=== PATIENT | male | born 1990 | race Two or more races ===

== ENCOUNTER 2021-06-22 11:42 | Emergency (ER) | payer SELFPAY ==
[2021-06-22 11:44] VITALS: BP 150/100; PULSE 69; RESP 18; TEMP 37; O2SAT 100; BMI 31.7
--- NOTE | 2021-06-22 12:21 | [facility].EDGENADL ---
ED Disposition Clinical Impression: Foreign body of hand, right Qualifiers: Encounter type: initial encounter Qualified Code(s): S60.551A - Superficial foreign body of right hand, initial encounter Disposition: Home, Self-Care Condition on Discharge: Good Instructions: DI for Laceration Repair Prescriptions: Amoxicillin/Potassium Clav [Amox-Clav 875-125 mg Tablet] 1 tab PO BID #14 tab Prescription Printed Referrals: Ton Gamino MD [Primary Care Provider] - - Critical Care Critical Care Time: No Attestation: On , the high probability of a clinically significant, sudden or life threatening deterioration of the following system(s) required my full and direct attention, intervention and personal management. The time I documented below is in addition to time spent performing reported procedures but includes the following listed in this critical care notation. Medical Decision Making - Medical Records Medical records reviewed: Yes: I reviewed the patient's medical records. - Roque Inquiry Pt receiving controlled substance: No Vital Signs: 06/22/21 11:44 Temperature 98.6 F Temperature Source Oral Pulse Rate [Left Radial] 69 Respiratory Rate 18 Blood Pressure [Right Arm] 150/100 H Blood Pressure Mean [Right Arm] 116 Blood Pressure Source [Right Arm] Automatic Cuff Blood Pressure Position [Right Arm] Sitting 02 Sat by Pulse Oximetry 100 Oxygen Delivery Method Room Air - Reevaluation(s) Time: 12:24 Reevaluation #1: Patient tolerated procedure well. We were able to remove a full foreign body. Placed on short course antibiotics. Needs follow-up with PCP in 48 hours. Given strict return precautions. Verbalized understanding. Medical Decision Narrative: Patient is a 31-year-old male presenting with wooden foreign body under his right thumb. Patient will need removal. I will perform digital block and the patient for extraction. General Adult HPI - General Chief complaint: Wound/Laceration Stated complaint: F/O under fingernail Time Seen by Provider: 06/22/21 11:50 Mode of Arrival: Ambulatory Limitations: No Limitations Description of Symptoms (Recalled from ER Triage Doc. by RN): got a splinter/wood in his right thumb from a tobacco stick - History of Present Illness HPI narrative: This is a 31-year-old male presented to the emergency department with a splinter under his right thumb. 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 He accidentally slipped and got a large splinter underneath the nail of his right thumb. Patient dates that he could not get it out. Is complaining of pain in the area. Denies any other injuries. Patient is unsure of his tetanus status. Denies any arm pain. No fevers or chills. No chest pain or shortness of breath. Headache change in vision. - Related Data Previous Rx's Medication Instructions Recorded Amoxicillin/Potassium Clav 1 tab PO BID #14 tab 06/22/21 [Amox-Clav 875-125 mg Tablet] [facility] History - Hepatitis A Screen Drug use history?: No High risk sexual behaviors?: No History of sexually transmitted infection?: No Currently employed?: No Childcare worker?: No Do you have indoor plumbing?: Yes Do you have electricity?: Yes Attestation statement:: This patient has been screened for Hepatitis A risk factors. I have reviewed the patient's past medical history: Yes ROS Obtained: Yes All systems reviewed & no additional complaints - Constitutional Constitutional: Denies chills, Denies fever(s) - Cardiovascular Cardiovascular: Denies chest pain - Respiratory Respiratory: Denies dyspnea - Musculoskeletal Musculoskeletal: Reports other (thumb pain) - Integumentary/Breasts Skin/Breast: Denies rash - Neurologic Neurologic: Denies headache(s) Physical Exam - General General appearance: alert, in no apparent distress - Respiratory Respiratory exam: Present: normal lung sounds bilaterally. Absent
[2021-06-22 12:42] VITALS: BP 143/90; PULSE 70; RESP 18; TEMP 37; O2SAT 100
== END 2021-06-22 12:45 | disposition home or self-care (01) ==
LOC: ER 12:50
PROVIDERS: Emergency Provider Emergency Medicine; PCP Family Medicine
DX: S60.551A Superficial foreign body of right hand, initial encounter (principal); Z23 Encounter for immunization
CPT/HCPCS: 10120; 90715; 99282